=== PATIENT | male | born 1970 | race Caucasian/White ===

== ENCOUNTER 2017-06-11 13:10 | Emergency (ER) | payer OTHER ==
[~2017-06-11] VITALS: Ht 172.7 cm; Wt 87.5 kg
[2017-06-11 14:10] VITALS: BP 149/89
--- NOTE | 2017-06-11 14:29 | ED.ADGEN ---
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 Pt states he doesn't really know what happened but states he stayed up later than he had wanted yesterday evening (11pm) preparing for his presentation today. He chronically has insomnia and frequently sleep very little, if at all, and taking ambien to help sleep. He also has taken percocet for the last 3 weeks for pain from cervical spine fusion. He also takes multiple other medications for various ailments. 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 He denies fever or recent illness. Denies alcohol or illegal substances. EMS reports when they arrived he was very difficult to arouse, and this was after pt was reportedly sleeping more than 13 hours straight. Pt denies any focal complaints or recent illness. Pt denies diagnosis of depression/ptsd/anxiety/bipolar. He denies SI/HI Review of Systems Review of Systems Constitutional: Denies fever or chills [] Eyes: Denies change in visual acuity, redness, or eye pain [] HENT: Denies nasal congestion or sore throat [] Respiratory: Denies cough or shortness of breath [] Cardiovascular: Denies chest pain GI: Denies abdominal pain, nausea, vomiting, bloody stools or diarrhea [] : Denies dysuria or hematuria [] Musculoskeletal: Denies back pain or joint pain [] Integument: Denies rash or skin lesions [] Neurologic: Denies headache, focal weakness or sensory changes [] Allergies Allergies Allergies Coded Allergies Type Severity Reaction Last Updated Verified No Known Drug Allergies 06/11/17 No Physical Exam Physical Exam Constitutional: Well developed, well nourished, no acute distress, non-toxic appearance.Flat affect HENT: Normocephalic, atraumatic, bilateral external ears normal, oropharynx moist, no oral exudates, nose normal. [] Eyes: PERRLA, EOMI, conjunctiva normal, no discharge. [] Neck: Normal range of motion, no tenderness, supple, no stridor. [] Cardiovascular:Heart rate regular rhythm, no murmur [] Lungs & Thorax: Bilateral breath sounds clear to auscultation [] Abdomen: Bowel sounds normal, soft, no tenderness, no masses, no pulsatile masses. [] Skin: Warm, dry, no erythema, no rash. [] Back: No tenderness, no CVA tenderness. [] Extremities: No tenderness, no cyanosis, no clubbing, ROM intact, no edema. [] Neurologic: Alert and oriented X 3, normal motor function, normal sensory function, no focal deficits noted. [] Psychologic: Affect flat, depressed, Not SI/HI Current Patient Data Vital Signs Vital Signs Date Time Temp Pulse Resp B/P (MAP) Pulse Ox O2 Delivery O2 Flow Rate FiO2 06/11/17 14:10 75 18 149/89 (109) 98 Room Air 06/11/17 13:10 97.0 EKG EKG [] Radiology/Procedures Radiology/Procedures [] Course & Med Decision Making Course & Med Decision Making Pertinent Labs and Imaging studies reviewed. (See chart for details) I offered to evaluate the pt but he has no complaints and did not want tests performed at this time as he has no illness. He states he is not SI/HI, not sick. I explained that pt is likely excessively sleeping due to other times not sleeping and his polypharmacy. I encouraged pt to see PCP and discuss reducing medications (which he may be self-prescribing, as some meds have no labels on them) and also evaluate for depression. Pt voiced understanding. Pt's commanding officer arrived. I explained that the pt didn't want any further testing done here. She plans to take the pt to [facility] for a psychiatric evaluation. Final Impression Final Impression Polypharmacy Excessive sleepiness Problems: Dragon Disclaimer Dragon Disclaimer This electronic medical record was generated, in whole or in part, using a voice recognition dictation system. KEELY ALW MD Jun 11, 2017 14:29
== END 2017-06-11 14:10 | disposition home or self-care (01) ==
LOC: ER 13:10
DX: G47.10 Hypersomnia, unspecified (principal); T50.901A Poisoning by unspecified drugs, medicaments and biological substances, accidental (unintentional), initial encounter; G47.00 Insomnia, unspecified; G89.29 Other chronic pain; Y92.89 Other specified places as the place of occurrence of the external cause
CPT/HCPCS: 99283